=== PATIENT | female | born 1950 | race Caucasian/White ===

== ENCOUNTER 2023-08-05 14:54 | Emergency (ER) | payer MEDICAID, OTHER ==
[~2023-08-05] VITALS: Ht 149.9 cm; Wt 40.8 kg
[2023-08-05 15:19] VITALS: O2SAT 99
[2023-08-05 15:56] LABS: BASOPHILS % 0.6 % (0.0-2.0); EOSINOPHILS % 0.8 % (0.0-5.0); HEMATOCRIT. 40.8 % (36.0-48.0); HEMOGLOBIN. 13.5 g/dL (12.0-16.0); LYMPHOCYTES % 21.1 % (20.0-50.0); MEAN CORPUSCULAR HEMOGLOBIN 29.1 pg (28.0-32.0); MEAN CORPUSCULAR HGB CONC 33.1 g/dL (31.0-37.0); MEAN PLATELET VOLUME 8.7 fl (7.4-10.4); MONOCYTES % 11.1 % (2.0-8.0); NEUTROPHILS % 66.4 % (40.0-76.0); PLATELET 249 x1000/uL (130-400); RED BLOOD CELL COUNT 4.63 mill/uL (4.2-5.4); RED CELL DISTRIBUTION WIDTH 13.2 % (11.6-14.6); WHITE BLOOD COUNT 5.7 x1000/uL (4.5-11.0)
[2023-08-05 16:00] LABS: CHLORIDE 104 mEq/L (98-107); SODIUM 137 mEq/L (136-145)
[2023-08-05 16:01] LABS: CALCIUM 10.4 mg/dL (8.7-10.4); CARBON DIOXIDE 28 mEq/L (21-32)
[2023-08-05 16:06] LABS: CREATININE 0.7 mg/dL (0.6-1.0); GLUCOSE 120 mg/dL (70-105); UREA NITROGEN BLOOD 11 mg/dL (9-23)
[2023-08-05 16:07] LABS: TROPONIN I HIGH SENSITIVITY 4 ng/L (3.0-34)
[2023-08-05 16:08] LABS: ALANINE AMINOTRANSFERASE 10 IU/L (10-49); ALBUMIN 4.6 g/dL (3.2-4.8); ASPARTATE AMINOTRANSFERASE 19 IU/L (<34); BILIRUBIN TOTAL 0.3 mg/dL (0.1-1.0); PROTEIN TOTAL 7.2 g/dL (6.0-8.3)
[2023-08-05 17:19] LABS: CLARITY URINE CLEAR (CLEAR); COLOR URINE YELLOW (YELLOW); GLUCOSE URINE NEGATIVE (NEGATIVE); KETONES URINE NEGATIVE (NEGATIVE); LEUKOCYTE ESTERASE URINE TRACE (NEGATIVE); NITRITE URINE NEGATIVE (NEGATIVE); OCCULT BLOOD URINE TRACE (NEGATIVE); PH URINE 5.5 (4.5-8.0); PROTEIN URINE NEGATIVE (NEGATIVE); SPECIFIC GRAVITY URINE 1.013 (1.005-1.030); UROBILINOGEN URINE 0.2 E.U./dL (0.2-1.0)
[2023-08-05 17:32] LABS: BACTERIA URINE TRACE
[2023-08-05 17:33] LABS: SQUAMOUS EPITHELIAL CELL URINE 1+ /lpf (RARE/1+)
[2023-08-05 17:37] LABS: BILIRUBIN DIRECT < 0.1 mg/dL (<=3.0)
[2023-08-05] MEDS: ASPIRIN 81MG TABLET PO ONE (22:40)
[2023-08-05 23:39] VITALS: BP 97/76; PULSE 86; RESP 15; TEMP 99.3
== END 2023-08-05 23:50 | disposition short-term general hospital (02) ==
LOC: ER 14:54 → CANBEDREQ 08-06 03:34
DX: R07.89 Other chest pain (principal); R51.9 Headache, unspecified
CPT/HCPCS: 36415; 71045; 74176; 80048; 80076; 81003; 84484; 85025; 93005; 99285